=== PATIENT | male | born 1960 | race Caucasian/White ===

== ENCOUNTER 2018-08-08 17:28 | Emergency (ER) | payer MEDICAID ==
--- NOTE | 2018-08-08 18:33 | EDPHY ---
H & P Stated Complaint: Fall 07/30. back and rib pain . Left shoulder pain. Time Seen by Provider: 08/08/18 18:12 HPI/ROS: CHIEF COMPLAINT: Back pain and rib pain following fall 2 weeks ago. HISTORY OF PRESENT ILLNESS: The patient presents to the ED with complaints of back pain and rib pain following a fall 2 weeks ago. The patient did not strike his head or lose consciousness. He is not anticoagulated. The patient denies any lower extremity numbness or weakness. The patient does report mild dyspnea. Patient states that his pain is moderate in nature. He denies abdominal pain. The patient reports he has been having some blurry vision and visual changes today. REVIEW OF SYSTEMS: A comprehensive 10 point review of systems is otherwise negative aside from elements mentioned in the history of present illness. Source: Patient Exam Limitations: No limitations - Personal History Current Tetanus/Diphtheria Vaccine: Unsure Current Tetanus Diphtheria and Acellular Pertussis (TDAP): Unsure - Medical/Surgical History Hx Asthma: No Hx Chronic Respiratory Disease: No Hx Diabetes: No Hx Cardiac Disease: No Hx Renal Disease: No Hx Cirrhosis: No Hx Alcoholism: No Hx HIV/AIDS: No Hx Splenectomy or Spleen Trauma: No Other PMH: PMH: hernia igneal, 5 degen disks in back, PE bilateral. PSH: surgial repair of hernia, none - Social History Smoking Status: Never smoked - Physical Exam Exam: General Appearance: Alert, no distress Head: Atraumatic Eyes: Pupils equal, round, reactive ENT, Mouth: No hemotympanum, no oral trauma Neck: Nontender, trachea midline Respiratory: Tenderness to palpation throughout the posterior ribs, no subcutaneous emphysema, lungs clear to auscultation bilaterally Cardiovascular: Regular rate and rhythm Abdomen: Abdomen is soft and nontender, pelvis stable Skin: No lacerations, No abrasion Back: Tenderness to palpation midthoracic and mid lumbar spine Extremities: Nontender, full range of motion Neurological: GCS 15, 5/5 strength all 4 extremities, cranial nerves intact, normal sensory exam Constitutional: Initial Vital Signs Temperature (C) 36.9 C 08/08/18 17:30 Heart Rate 70 08/08/18 17:30 Respiratory Rate 16 08/08/18 17:30 Blood Pressure 151/112 H 08/08/18 17:30 O2 Sat (%) 95 08/08/18 17:30 O2 Delivery Mode Room Air Allergies/Adverse Reactions: No Known Allergies Allergy (Unverified 08/08/18 17:37) Home Medications: Medication Instructions Recorded Albuterol [Proventil Inhaler HFA 2 puffs IH Q4 PRN 11/30/15 (*)] Herbals/Supplements -Info Only 1 ea PO AD 11/30/15 Acetaminophen [Tylenol 325mg (*)] 650 mg PO Q4 PRN #0 tab 12/02/15 Ibuprofen [Motrin (*)] 600 mg PO Q6 PRN #0 tab 12/02/15 Rivaroxaban [Xarelto 15mg (*)] 15 mg PO BIDMEAL #40 tab 12/02/15 Rivaroxaban [Xarelto] 20 mg PO DAILY #30 tab 12/02/15 Sennosides/Docusate Sodium 1 - 2 tab PO BID #60 tab 12/02/15 [Senokot-S] oxyCODONE IR [Oxycodone Ir (*)] 5 - 15 mg PO Q4 PRN #60 tab 12/02/15 Cyclobenzaprine [Flexeril 10 MG 10 mg PO TID PRN #15 tab 08/08/18 (*)] Ibuprofen [Motrin (*)] 600 mg PO QID PRN #30 tab 08/08/18 Lidocaine 5% [Lidoderm 5% Patch] 1 ea TD DAILY #12 patch 08/08/18 Medical Decision Making - Diagnostics Imaging Results: Imaging Impressions Chest X-Ray 08/08/18 18:16 Impression: 1. No acute posttraumatic findings in the chest. 2. Mild airways disease/bronchitis with basilar atelectasis. Lumbar Spine X-Ray 08/08/18 18:17 Impression: No acute findings in the lumbar spine. Thoracic Spine X-Ray 08/08/18 18:17 Impression: No acute osseous findings. CT brain without contrast: Negative for intracranial hemorrhage or skull fracture. Images reviewed by myself and discussed with radiologist Dr. Del Valle. Imaging: Discussed imaging studies w/ parking ramp attendant Radiologist, I viewed and interpreted images myself ED Course/Re-evaluation: Patient was taken for x-rays of the chest, thoracic spine a lumbar spine given his physical exam findings. The studies demonstrate no evidence of an obvious fracture. Given his head injury with complaints of visual changes today noncontrast head CT scan was performed which demonstrates no evidence of an obvious epidural or subdural hematoma. There is no evidence of a fracture. Patient's examination is 1 consistent with a myofascial contusion and sprain. The patient will be given a prescription for lidocaine patches. He is advised to use Flexeril and ibuprofen for management of his symptoms. The patient is also given concussion aftercare instructions. Differential Diagnosis: Differential diagnosis considered includes closed head injury, skull fracture, intracranial hemorrhage, thoracic fracture, lumbar fracture Departure - Departure Disposition: Home, Routine, Self-Care Clinical Impression: Concussion, Thoracic back sprain Condition: Good Instructions: Musculoskeletal Pain (ED) Additional Instructions: 1. Take Ibuprofen or Motrin 600 mg by mouth three times a day. 2. Lidocaine patches as needed for discomfort 3. Flexeril as needed for muscle relaxation 4. Concussion aftercare instructions as recommended. Please follow up with our concussion specialist Dr. Gaitan for any ongoing symptoms. Referrals: Tejal Gaitan MD [Medical Doctor] - As per Instructions Prescriptions: Cyclobenzaprine [Flexeril 10 MG (*)] 10 mg PO TID PRN #15 tab PRN Reason: Spasms Ibuprofen [Motrin (*)] 600 mg PO QID PRN #30 tab PRN Reason: for pain Lidocaine 5% [Lidoderm 5% Patch] 1 ea TD DAILY #12 patch
[2018-08-08 19:58] VITALS: BP 175/102
== END 2018-08-08 19:58 | disposition home or self-care (01) ==
DX: S06.0X9A Concussion with loss of consciousness of unspecified duration, initial encounter (principal); S23.3XXA Sprain of ligaments of thoracic spine, initial encounter; W19.XXXA Unspecified fall, initial encounter; Y92.9 Unspecified place or not applicable; Y99.9 Unspecified external cause status; Y93.9 Activity, unspecified